=== PATIENT | female | born 1995 | race Caucasian/White ===

== ENCOUNTER 2023-02-02 15:46 | Outpatient (CLI) | payer OTHER | END 2023-02-02 15:47 | disposition home or self-care (01) | LOC: NAV RAD 15:46 | PROVIDERS: ATTEND Family Medicine | DX: M79.672 Pain in left foot (principal) ==

== ENCOUNTER 2023-08-22 14:01 | Emergency (ER) | payer OTHER | END 2023-08-22 14:59 | disposition home or self-care (01) | LOC: NAV ERS 14:01 | DX: S93.402A Sprain of unspecified ligament of left ankle, initial encounter (principal); F41.9 Anxiety disorder, unspecified; Z79.899 Other long term (current) drug therapy; X50.1XXA Overexertion from prolonged static or awkward postures, initial encounter; Y92.830 Public park as the place of occurrence of the external cause ==